=== PATIENT | male | born 1990 | race Caucasian/White ===

== ENCOUNTER 2022-11-06 18:07 | Emergency (ER) | payer MEDICAID ==
[~2022-11-06] VITALS: Ht 175.3 cm; Wt 80.0 kg
[~2022-11-06 18:07] MED LIST: ALBU8.5H4 IH; IBUP-1984 PO; IBUP-1986 PO; NO HOME MEDS; [UNRECOGNIZED DRUG - CODE] PO
[2022-11-06 18:27] VITALS: BP 129/84; PULSE 62; RESP 18; TEMP 98.2; O2SAT 98
== END 2022-11-06 19:23 | disposition left against medical advice (07) ==
LOC: ER 18:08
DX: H57.12 Ocular pain, left eye (principal); Z53.21 Procedure and treatment not carried out due to patient leaving prior to being seen by health care provider
CPT/HCPCS: 99281

== ENCOUNTER 2022-11-06 21:20 | Emergency (ER) | payer MEDICAID, OTHER ==
[~2022-11-06] VITALS: Ht 175.3 cm; Wt 80.0 kg
[2022-11-07] MEDS ORDERED: proparacaine 0.5% ophthalmic drops 15ml EACHEYE ONE (04:25)
[2022-11-07] MEDS ORDERED: acetaminophen 325mg tablet PO ONE (04:30)
[2022-11-07] MEDS ORDERED: ibuprofen tablet 400 MG TABLET PO ONE (04:30)
--- NOTE | 2022-11-07 06:35 | NUR ---
Pt. resting quietly in [facility]. No complaints of discomfort at this time. Awaiting consult with OpthamalogistADONAY MD to call opthamalogist for consult.
[2022-11-07 07:19] VITALS: BP 124/85; PULSE 60; RESP 16; TEMP 97.5; O2SAT 100
--- NOTE | 2022-11-07 08:30 | NUR ---
DR. RUBY'S OFFICE CONTACTED FOR CONSULT AND WILL SEE PATIENT THIS MORNING. FACE SHEET FAXED TO DRClarissa OFFICE. PATIENT INFORMED OF APPOINTMENT WITH DR. RUBY WHEN DC FROM HERE.
--- NOTE | 2022-11-07 08:50 | NUR ---
DC INSTRUCTIONS GIVEN TO PATIENT WITH ADDRESS AND PHONE NUMBER OF DR. RUBY. PATIENT AND SIG OTHER VERBALIZED UNDERSTANDING. DEPARTED FROM ER, AMBULATORY IN GOOD CONDITION.
== END 2022-11-07 09:02 | disposition home or self-care (01) ==
LOC: ER 21:20
DX: T15.91XA Foreign body on external eye, part unspecified, right eye, initial encounter (principal); X58.XXXA Exposure to other specified factors, initial encounter; Y93.89 Activity, other specified; Y92.89 Other specified places as the place of occurrence of the external cause; Y99.8 Other external cause status
CPT/HCPCS: 99283